=== PATIENT | male | born 1960 ===

== ENCOUNTER 2017-04-26 08:08 | Outpatient (CLI) | payer OTHER | END 2017-04-26 15:00 | disposition home or self-care (01) | LOC: RX STUDY 08:08 | DX: K27.9 Peptic ulcer, site unspecified, unspecified as acute or chronic, without hemorrhage or perforation (principal) ==

== ENCOUNTER 2021-02-03 07:16 | Outpatient (CLI) | payer OTHER | END 2021-02-03 07:24 | disposition home or self-care (01) | LOC: RAD 07:16 | PROVIDERS: ATTEND Colon & Rectal Surgery | DX: I48.0 Paroxysmal atrial fibrillation (principal) ==